=== PATIENT | female | born 1970 | race Caucasian/White ===

== ENCOUNTER → 2017-10-10 | Outpatient (CLI) | payer BC ==
[~2017-10-10] MED LIST: CEPH500C; CLC100; IBUP-1428; OXYC-57; PRENTAB26
--- NOTE | 2017-10-10 10:02 | DIAGNOSTIC IMAGING REPORT ---
R ELBOW MIN 3 VIEWS CLINICAL HISTORY: RIGHT ELBOW PAIN pain COMPARISON: None. DISCUSSION: The bones and joint spaces appear intact. There is no evidence of fracture, dislocation or bony disease. There is no evidence for soft tissue swelling. IMPRESSION: Negative study. The above report was generated using voice recognition software. It may contain grammatical, syntax or spelling errors. Electronically signed by: Jamin Brandt M.D. 10/10/2017 10:01 AM Dictated Date/Time: 10/10/2017 10:00 AM
== END | disposition home or self-care (01) ==
LOC: C.RDSM 14:18
PROVIDERS: ATTEND Internal Medicine
DX: M25.521 Pain in right elbow (principal)